=== PATIENT | male | born 1965 | race Caucasian/White ===

== ENCOUNTER 2023-01-27 10:03 | Emergency (ER) | payer OTHER, MEDICAID ==
[~2023-01-27] VITALS: Ht 170.2 cm; Wt 77.1 kg
[2023-01-27 10:21] VITALS: BP_SYST 119; PULSE 61; RESP 18; TEMP 98.1; O2SAT 96
[2023-01-27] MEDS ORDERED: TRIA15CR4 TP (10:35)
[2023-01-27] MEDS ORDERED: CETI10CA PO (10:35)
[2023-01-27] MEDS ORDERED: LORA0.5T PO (10:35)
[2023-01-27] MEDS ORDERED: MEMA10TA56 PO (10:35)
[2023-01-27] MEDS ORDERED: HAL5 PO (10:35)
[2023-01-27] MEDS ORDERED: PANT40TA45 PO (10:35)
[2023-01-27] MEDS ORDERED: MIRT-91 PO (10:35)
[2023-01-27] MEDS ORDERED: HYDR50TA61 PO (10:35)
[2023-01-27] MEDS ORDERED: GUAI5SYR PO (10:35)
[2023-01-27] MEDS ORDERED: DONE5TAB3 PO (10:35)
[2023-01-27 11:16] LABS: CALCIUM 8.8 mg/dL (8.4-11.0); CREATININE 0.78 mg/dL (0.55-1.30); POTASSIUM 4.1 mmol/L (3.5-5.1)
[2023-01-27 11:31] LABS: ALBUMIN 3.2 g/dL (3.4-4.8); TOTAL BILIRUBIN 0.2 mg/dL (0.0-1.0); TOTAL PROTEIN, SERUM 6.8 g/dL (6.4-8.3)
[2023-01-27 11:44] LABS: BASOPHILS % (AUTO) 0.4 % (0.0-2.0); EOSINOPHILS # (AUTO) 0.2 K/uL (0.0-0.4); EOSINOPHILS % (AUTO) 2.9 % (0.0-4.0); HEMATOCRIT 37.5 % (36-54); HEMOGLOBIN 12.1 g/dL (14.0-18.0); LYMPHOCYTES # (AUTO) 1.9 K/uL (1.0-5.5); LYMPHOCYTES % (AUTO) 30.6 % (20.5-51.5); MEAN CORPUSCULAR HEMOGLOBIN 29 pg (27-31); MEAN CORPUSCULAR HGB CONC 32 % (32-36); MEAN CORPUSCULAR VOLUME 89 fL (79.0-98.0); MONOCYTES # (AUTO) 0.3 K/uL (0.0-1.0); MONOCYTES % (AUTO) 5.1 % (1.7-9.3); NEUTROPHILS # (AUTO) 3.7 K/uL (1.8-7.7); PLATELET COUNT (AUTO) 191 K/uL (130-430); RED BLOOD CELL COUNT(AUTO) 4.22 MIL/uL (4.2-6.2); RED CELL DISTRIBUTION WIDTH 14.5 % (9.0-15.0); WHITE BLOOD COUNT (AUTO) 6.1 K/uL (4.8-10.8)
[2023-01-27 11:59] LABS: HEMOGLOBIN A1C 5.89 % (<5.7)
[2023-01-27 13:09] VITALS: BP_SYST 119; PULSE 61; RESP 18; TEMP 98.1; O2SAT 96
== END 2023-01-27 13:05 | disposition home or self-care (01) ==
LOC: SED 10:03
DX: Z00.00 Encounter for general adult medical examination without abnormal findings (principal); Z79.899 Other long term (current) drug therapy; Z20.822 Contact with and (suspected) exposure to COVID-19
CPT/HCPCS: 36415; 71045; 80053; 82550; 83037; 83605; 84484; 85025; 93005; 99285